=== PATIENT | male | born 1965 | race Caucasian/White ===

== ENCOUNTER 2018-01-29 16:12 | Emergency (ER) | payer OTHER ==
[2018-01-29] MEDS ORDERED: LIDOCAINE 1% MPF 2 ML AMPULE ONE ×2 (16:36→16:38)
[2018-01-29] MEDS ORDERED: TETANUS & DIPHTHERIA TOX,ADULT 0.5 ML VIAL ONE (16:44)
[2018-01-29] MEDS ORDERED: DOXYCYCLINE 100 MG CAP PO ONE (16:47)
--- NOTE | 2018-01-29 16:54 | EDPHYS ---
Physician Documentation [facility] Name: London Broussard Age: 52 yrs Sex: Male : 1965 Arrival Date: 01/29/2018 Time: 16:15 Bed 13 Private MD: ED Physician Brandt Peralta HPI: 01/29 17:01 This 52 yrs old Male presents to ER via Ambulatory with complaints of Foreign snw Body - Fish Hook L Thumb. 17:01 The patient or guardian reports the patient has a suspected foreign body, left thumb snw pad. The reported likely foreign body is a fishhook. Onset: The symptoms/episode began/occurred suddenly. Current symptoms: none. Treatment Prior to Arrival: tried to remove, but couldn't get out. The patient has not experienced similar symptoms in the past. The patient has not recently seen a physician. Historical: - Allergies: 16:23 PENICILLINS; sv - Home Meds: 16:23 None [Active]; sv - PMHx: 16:23 None; sv - PSHx: 16:23 Vasectomy; sv - Immunization history:: Adult Immunizations up to date, Last tetanus immunization: < 10 years ago. - Social history:: Smoking status: Patient/guardian denies using tobacco, Patient uses alcohol, but reports only rare drinking. - Ebola Screening: : No symptoms or risks identified at this time. ROS: 16:59 Constitutional: Negative for fever, chills, and weight loss, Eyes: Negative for injury, snw pain, redness, and discharge, ENT: Negative for injury, pain, and discharge, Neck: Negative for injury, pain, and swelling, Cardiovascular: Negative for chest pain, palpitations, and edema, Respiratory: Negative for shortness of breath, cough, wheezing, and pleuritic chest pain, Abdomen/GI: Negative for abdominal pain, nausea, vomiting, diarrhea, and constipation, Back: Negative for injury and pain, : Negative for injury, bleeding, discharge, and swelling, MS/Extremity: Negative for injury and deformity, Neuro: Negative for headache, weakness, numbness, tingling, and seizure, Psych: Negative for depression, anxiety, suicide ideation, homicidal ideation, and hallucinations. 16:59 Skin: Positive for puncture, of the left thumb pad, with fishhook . Exam: 16:52 Constitutional: This is a well developed, well nourished patient who is awake, alert, snw and in no acute distress. Head/Face: Normocephalic, atraumatic. Eyes: Pupils equal round and reactive to light, extra-ocular motions intact. Lids and lashes normal. Conjunctiva and sclera are non-icteric and not injected. Cornea within normal limits. Periorbital areas with no swelling, redness, or edema. ENT: Nares patent. No nasal discharge, no septal abnormalities noted. Tympanic membranes are normal and external auditory canals are clear. Oropharynx with no redness, swelling, or masses, exudates, or evidence of obstruction, uvula midline. Mucous membranes moist. Neck: Trachea midline, no thyromegaly or masses palpated, and no cervical lymphadenopathy. Supple, full range of motion without nuchal rigidity, or vertebral point tenderness. No Meningismus. Chest/axilla: Normal chest wall appearance and motion. Nontender with no deformity. No lesions are appreciated. Cardiovascular: Regular rate and rhythm with a normal S1 and S2. No gallops, murmurs, or rubs. Normal PMI, no JVD. No pulse deficits. Respiratory: Lungs have equal breath sounds bilaterally, clear to auscultation and percussion. No rales, rhonchi or wheezes noted. No increased work of breathing, no retractions or nasal flaring. Abdomen/GI: Soft, non-tender, with normal bowel sounds. No distension or tympany. No guarding or rebound. No evidence of tenderness throughout. Back: No spinal tenderness. No costovertebral tenderness. Full range of motion. MS/ Extremity: Pulses equal, no cyanosis. Neurovascular intact. Full, normal range of motion. Neuro: Awake and alert, GCS 15, oriented to person, place, time, and situation. Cranial nerves II-XII grossly intact. Motor strength 5/5 in all extremities. Sensory grossly intact. Cerebellar exam normal. Normal gait. Psych: Awake, alert, with orientation to person, place and time. Behavior, mood, and affect are within normal limits. 16:52 Skin: Appearance: normal except for affected area, injury, puncture(s), that are superficial, of the dorsal aspect of distal phalanx of right thumb, + foreign body. Vital Signs: 16:24 BP 129 / 86; Pulse 89; Resp 18; Temp 98.3(TE); Pulse Ox 96% on R/A; Weight 79.38 kg; sv Height 5 ft. 9 in. (175.26 cm); Pain 0/10; 16:30 BP 114 / 80; Pulse 90; Resp 18; Pulse Ox 95% ; tl3 16:24 Body Mass Index 25.84 (79.38 kg, 175.26 cm) sv Procedures: 16:58 Foreign Body Removal: a fishhook, from the left thumb pad. snw MDM: 16:52 Patient medically screened. snw 17:00 Data reviewed: vital signs, nurses notes. Data interpreted: Pulse oximetry: on room air snw is 95 %. Interpretation: normal. Counseling: I had a detailed discussion with the patient and/or guardian regarding: the historical points, exam findings, and any diagnostic results supporting the discharge/admit diagnosis, the need for outpatient follow up, to return to the emergency department if symptoms worsen or persist or if there are any questions or concerns that arise at home. Special discussion: I discussed in detail with the patient the higher chance of wound infection based on his presenting history. Based on the history and exam findings, there is no indication for further emergent testing or inpatient evaluation. I discussed with the patient/guardian the need to see the primary care provider for further evaluation of the symptoms. Administered Medications: 16:49 Drug: Lidocaine (1 %) 5 mg {Note: per Antonia.} Route: Infiltration; tl3 16:50 Follow up: Response: No adverse reaction tl3 16:50 Drug: Doxycycline 100 mg Route: PO; tl3 16:50 Follow up: Response: No adverse reaction tl3 16:54 Drug: Tetanus-Diphtheria Toxoid Adult 0.5 ml {Warehouse Coordinator: [employer] ([employer]). Exp: tl3 03/30/2020. Lot #: [id number]. } Route: IM; Site: left deltoid; 16:55 Follow up: Response: No adverse reaction tl3 Disposition: 01/29/18 16:54 Discharged to Home. Impression: Puncture wound with foreign body of left thumb without damage to nail. - Condition is Stable. - Discharge Instructions: Fish Hook Removal, VIS, Tetanus, Diphtheria (Td) - CDC. - Prescriptions for Doxycycline Hyclate 100 mg Oral Tablet - take 1 tablet by ORAL route every 12 hours; 20 tablet. Diclofenac Sodium 75 mg Oral Tablet Sustained Release - take 1 tablet by ORAL route 2 times per day; 30 tablet. - Medication Reconciliation Form, Thank You Letter, Antibiotic Education, Prescription Opioid Use form. - Follow up: Private Physician; When: 2 - 3 days; Reason: Recheck today's complaints, Continuance of care, Re-evaluation by your physician. Follow up: Emergency Department; When: As needed; Reason: Worsening of condition. Addendum: 02/02/2018 12:04 Co-signature as Attending Physician, Brandt Peralta MD. g s Signatures: Kerry Redd, RN RN sv Antonia Huffman, EMS COORDINATOR-C EMS COORDINATOR-Csnw Brandt Peralta MD MD gs Lowrey, Tammy RN RN tl3 Corrections: (The following items were deleted from the chart) 01/29 17:13 16:54 01/29/2018 16:54 Discharged to Home. Impression: Puncture wound with foreign body tl3 of left thumb without damage to nail. Condition is Stable. Forms are Medication Reconciliation Form, Thank You Letter, Antibiotic Education, Prescription Opioid Use. Follow up: Private Physician; When: 2 - 3 days; Reason: Recheck today's complaints, Continuance of care, Re-evaluation by your physician. Follow up: Emergency Department; When: As needed; Reason: Worsening of condition. snw
--- NOTE | 2018-01-29 16:54 | ER ---
Nurse's Notes [facility] Name: London Broussard Age: 52 yrs Sex: Male : 1965 Arrival Date: 01/29/2018 Time: 16:15 Bed 13 Private MD: Diagnosis: Puncture wound with foreign body of left thumb without damage to nail Presentation: 01/29 16:22 Presenting complaint: Patient states: brand new fish hook in pt's left thumb that sv occurred about 3-4 hours ago. Transition of care: patient was not received from another setting of care. Onset of symptoms was January 29, 2018. Care prior to arrival: None. 16:22 Method Of Arrival: Ambulatory sv 16:22 Acuity: DONY 4 sv Historical: - Allergies: 16:23 PENICILLINS; sv - Home Meds: 16:23 None [Active]; sv - PMHx: 16:23 None; sv - PSHx: 16:23 Vasectomy; sv - Immunization history:: Adult Immunizations up to date, Last tetanus immunization: < 10 years ago. - Social history:: Smoking status: Patient/guardian denies using tobacco, Patient uses alcohol, but reports only rare drinking. - Ebola Screening: : No symptoms or risks identified at this time. Screenin:30 Abuse screen: Denies threats or abuse. Nutritional screening: No deficits noted. tl3 Tuberculosis screening: No symptoms or risk factors identified. Fall Risk None identified. Assessment: 16:30 General: Appears in no apparent distress. comfortable, well groomed, well developed, tl3 well nourished, Behavior is calm, cooperative, appropriate for age. Pain: Complains of pain in dorsal aspect of distal phalanx of right thumb. Neuro: Level of Consciousness is awake, alert, obeys commands, Oriented to person, place, time, situation, Appropriate for age. Cardiovascular: No deficits noted. Heart tones S1 S2 present Patient's skin is warm and dry. Respiratory: Airway is patent Respiratory effort is even, unlabored, Respiratory pattern is regular, symmetrical, Breath sounds are clear bilaterally. GI: No deficits noted. No signs and/or symptoms were reported involving the gastrointestinal system. : No deficits noted. No signs and/or symptoms were reported regarding the genitourinary system. EENT: No deficits noted. No signs and/or symptoms were reported regarding the EENT system. Derm: No deficits noted. No signs and/or symptoms reported regarding the dermatologic system. Musculoskeletal: No deficits noted. No signs and/or symptoms reported regarding the musculoskeletal system. Injury Description: Foreign body is located right thumb. Vital Signs: 16:24 BP 129 / 86; Pulse 89; Resp 18; Temp 98.3(TE); Pulse Ox 96% on R/A; Weight 79.38 kg; sv Height 5 ft. 9 in. (175.26 cm); Pain 0/10; 16:30 BP 114 / 80; Pulse 90; Resp 18; Pulse Ox 95% ; tl3 16:24 Body Mass Index 25.84 (79.38 kg, 175.26 cm) sv ED Course: 16:15 Patient arrived in ED. as 16:23 Triage completed. sv 16:24 Arm band placed on right wrist. Patient placed in an exam room, on a stretcher. sv 16:26 Antonia Huffman [facility]-C [facility]. snw 16:26 Brandt Peralta MD is Attending Physician. snw 16:30 Patient has correct armband on for positive identification. Call light in reach. Adult tl3 w/ patient. Pulse ox on. NIBP on. 16:30 No provider procedures requiring assistance completed. Patient did not have IV access tl3 during this emergency room visit. 16:34 Leda Alves, YANELY is Primary Nurse. tl3 Administered Medications: 16:49 Drug: Lidocaine (1 %) 5 mg {Note: per Antonia.} Route: Infiltration; tl3 16:50 Follow up: Response: No adverse reaction tl3 16:50 Drug: Doxycycline 100 mg Route: PO; tl3 16:50 Follow up: Response: No adverse reaction tl3 16:54 Drug: Tetanus-Diphtheria Toxoid Adult 0.5 ml {Hemodialysis Patient Care Specialist: [facility] ([employer]). Exp: tl3 03/30/2020. Lot #: [id number]. } Route: IM; Site: left deltoid; 16:55 Follow up: Response: No adverse reaction tl3 Outcome: 16:54 Discharge ordered by . snw 17:13 Patient left the ED. tl3 Signatures: Kerry Redd RN RN Antonia Huffman FNP-C TECHNOLOGY PROFESSIONAL-Csnw Nathan, Margarita as Sagar, Leda, RN RN tl3
== END 2018-01-29 17:13 | disposition home or self-care (01) ==
LOC: ER 16:12
DX: S61.042A Puncture wound with foreign body of left thumb without damage to nail, initial encounter (principal); Z23 Encounter for immunization; Z88.0 Allergy status to penicillin
CPT/HCPCS: 90714; 99283; J2001